=== PATIENT | male | born 1985 | race Hispanic/Latino ===

== ENCOUNTER 2022-04-28 15:46 | Emergency (ER) | payer SELFPAY ==
[2022-04-28 15:48] VITALS: BP 127/81; PULSE 75; RESP 16; TEMP 36.3; O2SAT 97; BMI 31.1
[2022-04-28] MEDS: Aspirin 81 MG TAB.CHEW 324 MG PO (17:21)
[2022-04-28 17:22] VITALS: BP 119/65; PULSE 74; RESP 19; O2SAT 98
--- NOTE | 2022-04-28 17:25 | RAD_ITS ---
STUDY: PORTABLE AP UPRIGHT CHEST X-RAY OF 1725 HOURS ON 04/28/2022 REASON FOR EXAM: 36-year-old male with chest pain. TECHNIQUE: A single view portable AP upright chest x-ray was performed. COMPARISON: None. FINDINGS: Mildly lordotic view. Otherwise, normal osseous structures. No cardiomegaly. Normal cardiomediastinum. No pulmonary infiltrates, atelectasis, effusion, or pulmonary mass lesions. No pneumonia, pneumonitis, or bronchitis. RAD/Chest 1 View (Portable) IMPRESSION: No active cardiopulmonary disease. Electronically Signed: Sameer Garcia MD at 18:14 EDT ,
[2022-04-28 17:36] LABS: AST(SGOT) 27 U/L (15-37); Absolute Lymphocyte Count 2.37 X10^3/uL (0.83-4.51); Absolute Neutrophil Count 4.7 X10^3/uL (2.0-7.7); Alanine Aminotransfer ALT/SGPT 38 U/L (16-61); Albumin, Serum 3.8 g/dL (3.2-5.0); Alkaline Phosphatase 94 U/L (45-117); Anion Gap 8 (5-15); BUN 19 mg/dL (7-18); BUN/Creat Ratio 17.3 RATIO (10-20); Basophil# 0.04 X10^3/uL; Basophil% 0.5 % (0-1); Calcium,Total 8.7 mg/dL (8.5-10.1); Chloride 105 mmol/L (98-107); EST Glomerular Filtration Rate 81 mL/min (>60); Eosinophil# 0.48 X10^3/uL; Est Glom Filt Rate - Afr Amer 98 mL/min (>60); Estimated Creatinine Clearance 85.39 ml/min; Globulin 3.6 g/dL (2.2-4.2); Glucose 104 mg/dL (74-106); Hematocrit 43.1 % (40-54); Lipase 189 U/L (73-393); Lymphocyte # 2.37 X10^3/ul (0.83-4.51); Lymphocyte % 29.4 % (19-41); Mean Corp Hgb Conc 34.8 g/dL (32-36); Mean Corpuscular Hgb 29.9 pg (27.0-32.0); Mean Corpuscular Volume 85.9 fL (80-94); Mean Platelet Vol. 10.6 fl (6.2-12.0); Monocyte# 0.49 X10^3/uL; Monocyte% 6.1 % (0-10); NRBC Flagged by Analyzer 0 % (0-5); Neutrophil # 4.66 X10^3/uL (2.7-7.7); Neutrophil % 57.8 % (47-70); Platelet Count 216 K/mm3 (150-450); Potassium 3.6 mmol/L (3.5-5.1); Protein, Total 7.4 g/dL (6.4-8.2); RBC Distribution Width CV 11.5 % (11.6-14.6); RBC Distribution Width SD 35.1 fl (35.1-43.9); Red Blood Count 5.02 M/mm3 (4.6-6.2); Sodium Level 141 mmol/L (136-145); Troponin-I HS (w/2H Reflex) 5 pg/mL (3.0-78.0); White Blood Count 8.1 K/mm3 (4.4-11.0)
--- NOTE | 2022-04-28 18:07 | ED.VIS.CHEST ---
HPI History of Present Illness Chief Complaint: Chest Pain Informant: patient Narrative Narrative: Patient is a 36-year-old male presenting with chest pain. Patient is Bulgarian-speaking and a formal scientific director is used for interactions. Patient has had pressure in the center of his chest for the past 3 days it radiates to the left. 2 days ago he had some associated shortness of breath but that is resolved. The chest discomfort is been constant and is actually more mild today. He states he did take aspirin yesterday which helped. Denies any associated nausea, vomiting, abdominal pain or change in bowel movements. He did receive his COVID-vaccine a week ago and is not sure if that is related. He previously had a mild fever but again that is since resolved. No associated cough. Nothing seems to make it better or worse. 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 He has been told that his cholesterol is little high and he is supposed to be on medicine for that but not taking any. He stopped using tobacco in December. Denies any known cardiac history. Denies any swelling of his legs. No other complaints at this time. Prior Similar Symptoms: No CVD Risk Factors: Positive for Hypercholesterolemia and Smoking; Negative for Hypertension, Diabetes or Family History 1' </=55 PE Risk Factors: Negative for Recent Travel/Surgery, Recent Immobilization, Prior DVT or PE, Cancer or OCP + Smoking + >/=35 PFSH PFSH Medical History no medical history Home Medications NK 04/28/22 [History Last Taken Unknown] Allergy/AdvReac Type Severity Reaction Status Date / Time No Known Allergies Allergy Verified 04/28/22 15:48 Social History Smoking Status: Former smoker ROS ROS ED Constitutional Constitutional ED: Denies chills or fever(s) Eyes Eyes: Denies change in vision ENT ENT ED: Denies rhinorrhea or sore throat Cardiovascular Cardiovascular: Reports as per HPI and chest pain; Denies palpitations Respiratory/Chest Respiratory/Chest: Denies cough or dyspnea Gastrointestinal Gastrointestinal: Denies abdominal pain, diarrhea, nausea or vomiting Genitourinary Genitourinary ED: Denies dysuria or hematuria Musculoskeletal Musculoskeletal: Denies arthralgias or myalgias Integumentary Denies rash Neurologic Neurologic: Denies headache(s) or weakness Psychiatric Psychiatric: Denies anxiety EXAM Physical Exam Const Vital Signs: 04/28/22 15:48 04/28/22 16:06 04/28/22 17:10 Temperature 97.4 F L Temperature Source Temporal Pulse Rate 75 Respiratory Rate 16 Respiratory Effort Normal Non-Labored Respiratory Pattern Normal Blood Pressure 127/81 H Blood Pressure Mean 96 Pulse Ox 97 Oxygen Delivery Method Room Air Room Air 04/28/22 17:22 04/28/22 18:52 Temperature Temperature Source Pulse Rate 74 76 Respiratory Rate 19 H 15 Respiratory Effort Respiratory Pattern Blood Pressure 119/65 114/82 H Blood Pressure Mean 83 Pulse Ox 98 98 Oxygen Delivery Method Room Air Positive well nourished and well developed General Appearance ED: well developed and NAD HEENT Reports moist mucous membranes normocephalic and atraumatic Eyes PERRL and EOMs intact bilaterally Neck supple and no JVD Chest Wall inspection of chest normal and palpation of chest normal Resp normal respiratory effort and clear to auscultation bilaterally Cardio regular rate, regular rhythm and no murmurs Peripheral Pulses: pulses 2+ throughout GI normal to inspection, nondistended, normoactive bowel sounds and soft to palpation Back/Spine no CVA tenderness Extremity normal to inspection General Extremety ED: Negative for edema General Extremity: Negative for edema Neuro oriented x3 Motor Exam: Negative for general weakness Psych mental status grossly normal Skin no rashes or lesions noted and no wounds Heart Score History: Slightly/Non-Suspicious ECG: Normal Age: </= 45 years Risk Factors: 1 or 2 Risk Factors Troponin: </= Normal Limit Score: 1 MDM MDM MDM Narrative Medical decision making narrative: Patient evaluated for constant chest pain has been there for over 3 days. It is not reproducible. Seems to get better with aspirin. Vital signs are normal. Patient is PE RC negative. I do not suspect a pulmonary emboli for the cause of his pain. I do not think a D-dimer or CTA is indicated at this time. EKG is normal and high sensitivity troponin is 5. 1 view chest x-ray interpreted by myself is normal. Physical exam is benign. The exact cause of symptoms not clear at this time I think he is safe to go home. We discharged home with return instructions. Lab Data Labs: Laboratory Results - last 24 hr 04/28/22 04/28/22 17:10 17:10 WBC 8.1 RBC 5.02 Hgb 15.0 Hct 43.1 MCV 85.9 MCH 29.9 MCHC 34.8 RDW Std Deviation 35.1 RDW Coeff of Edmund 11.5 L Plt Count 216 MPV 10.6 Immature Gran % (Auto) 0.200 Neut % (Auto) 57.8 Lymph % (Auto) 29.4 White % (Auto) 6.1 Eos % (Auto) 6.0 H Baso % (Auto) 0.5 Absolute Neuts (auto) 4.7 Absolute Lymphs (auto) 2.37 Nucleated RBC % 0 Sodium 141 Potassium 3.6 Chloride 105 Carbon Dioxide 28.0 Anion Gap 8 BUN 19 H Creatinine 1.10 Estim Creat Clear Calc 85.39 Est GFR (MDRD) Af Amer 98 Est GFR (MDRD) Non-Af 81 BUN/Creatinine Ratio 17.3 Glucose 104 Calcium 8.7 Total Bilirubin 0.50 Direct Bilirubin 0.10 AST 27 ALT 38 Alkaline Phosphatase 94 Troponin I High Sens 5 Total Protein 7.4 Albumin 3.8 Globulin 3.6 Lipase 189 Radiography Chest X-Ray - ED: 1 View, Read by ED Physician, Read by Radiologist and No Acute Disease Diagnostic Testing: Clinical Impression(s) from Imaging Studies Chest X-Ray 04/28/22 17:25 IMPRESSION: No active cardiopulmonary disease. Electronically Signed: Sameer Garcia MD at 18:14 EDT , Rhythm Strip Rhythm Strip: Sinus Rhythm Rate: 76 Ectopy: None EKG Initial EKG: Attestation: I personally reviewed and interpreted this EKG as follows: Interpretation: Sinus Rhythm Comments: Normal sinus rhythm at a rate of 76 Normal axis Normal intervals Normal ST segments Prior: No Prior Discharge Plan Triage Chief Complaint: Chest Pain ED Provider: Eva Freeman Dx/Rx/DC Orders Clinical Impression: Chest pain of uncertain etiology, History of hyperlipidemia Instructions: ED Chest Pain, Uncertain Cause Prescriptions: No Action NK Primary Care Provider: NOT,DEFINED Referrals: Akilah Crawford [Non-Staff] - 3-5 Days if not improving NOT,DEFINED [Primary Care Provider] - Activity Restrictions/Additional Instructions: Alternate Tylenol and ibuprofen for pain. The exact cause of your chest pain is not clear however I think you are safe to go home. There are no findings consistent with heart attack, blood clot or pneumonia. Print Language: Bulgarian Disposition Disposition: Home, Self Care Discharge Date/Time: 04/28/22 18:52
[2022-04-28 18:52] VITALS: BP 114/82; PULSE 76; RESP 15; O2SAT 98
[2022-04-28 19:13] LABS: Reflex Troponin-HS? (from REC) Y
== END 2022-04-28 18:52 | disposition home or self-care (01) ==
PROVIDERS: Emergency Provider Emergency Medicine; Visit Provider Emergency Medicine
DX: R07.9 Chest pain, unspecified (principal); E78.5 Hyperlipidemia, unspecified; Z87.891 Personal history of nicotine dependence
CPT/HCPCS: 71045; 80048; 80076; 83690; 84484; 85025; 93005; 99285; A4216